=== PATIENT | female | born 1945 ===

== ENCOUNTER 2018-03-12 13:14 | Outpatient (CLI) | payer OTHER ==
[~2018-03-12] VITALS: Ht 162.6 cm; Wt 108.9 kg
== END 2018-03-12 13:56 | disposition home or self-care (01) ==
LOC: OFIC 805 13:14
DX: H91.8X3 Other specified hearing loss, bilateral (principal); D32.9 Benign neoplasm of meninges, unspecified; H93.8X3 Other specified disorders of ear, bilateral; J32.8 Other chronic sinusitis